=== PATIENT | female | born 1955 | race Caucasian/White ===

== ENCOUNTER 2017-03-24 18:00 | Emergency (ER) | payer BC ==
[2017-03-24] MEDS ORDERED: Ketorolac 60 MG/2 ML SDV IM ONE (18:19)
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
[2017-03-24 20:52] VITALS: BP 132/83
--- NOTE | 2017-03-25 18:30 | CR ---
EXAM DATE: 03/24/17 PATIENT'S AGE: 61 Patient: JANUARY SU[facility] Facility: [place], [place] Site . Site : [id number] Study: XRay Extremity Right [id number]/29/2017 6:47:56 PM Ordering Physician: Doctor Otoole Final Report: INDICATION: Forearm trauma. TECHNIQUE: Two views right forearm. COMPARISON: None Findings and impression: There is a mildly comminuted and impacted, intra-articular fracture of the distal radial metaphysis. There is associated soft tissue swelling. No other fracture identified. No dislocation. Dictated by Rajesh Arellano MD @ 03/24/2017 7:18:52 PM Dictated by: Rajesh Arellano MD @ 03/24/2017 19:19:02 (Electronic Signature) Report Signed by Proxy. SRAVAN
== END 2017-03-24 20:20 | disposition home or self-care (01) ==
LOC: MW.ED 18:00
DX: S52.121A Displaced fracture of head of right radius, initial encounter for closed fracture (principal); V87.8XXA Person injured in other specified noncollision transport accidents involving motor vehicle (traffic), initial encounter
CPT/HCPCS: 73090; 96372; 99283; A4566; J1885

== ENCOUNTER → 2017-03-27 | Outpatient (CLI) | payer BC ==
--- NOTE | 2017-03-27 15:19 | CR ---
EXAMINATION: Right wrist HISTORY: Pain COMPARISON: 03/24/2017 TECHNIQUE: 3 views FINDINGS/IMPRESSION: There is a comminuted intra-articular mildly impacted distal radius fracture id entified, grossly unchanged in position and alignment. There is mild negative ulnar variance. There is also widening of the scapholunate interval suggesting underlying ligamentous injury.
== END ==
LOC: MW.CHORTHO 08:19
PROVIDERS: ATTEND Physician Assistant
DX: M25.531 Pain in right wrist (principal); S52.571A Other intraarticular fracture of lower end of right radius, initial encounter for closed fracture
CPT/HCPCS: 73110-26-RT; 73110-RT

== ENCOUNTER → 2017-04-03 | Outpatient (CLI) | payer BC ==
--- NOTE | 2017-04-03 16:19 | CR ---
EXAMINATION: Right wrist HISTORY: Fracture COMPARISON: 03/27/2017 TECHNIQUE: 2 views FINDINGS/IMPRESSION: There is a stable mildly impacted comminuted distal radius fracture identified. There is negative ulnar variance. There is also mild widening of the scapholunate interval suggesti ng underlying ligamentous disruption.
== END ==
LOC: MW.CHORTHO 07:55
PROVIDERS: ATTEND Physician Assistant
DX: S52.501A Unspecified fracture of the lower end of right radius, initial encounter for closed fracture (principal)
CPT/HCPCS: 73100-26-RT; 73100-RT

== ENCOUNTER 2019-11-05 10:22 | Day surgery (SDC) | payer BC ==
[2019-11-05] MEDS ORDERED: Bupivacaine 0.5% 30 ML SDV ONE (11:14)
[2019-11-05] MEDS ORDERED: fentaNYL 100 MCG/2 ML SDV ONE ×3 (11:26→15:07)
[2019-11-05] MEDS ORDERED: Propofol 200 MG/20 ML SDV ONE (11:26)
[2019-11-05] MEDS ORDERED: Midazolam 1 MG/ML 2 ML SDV ONE (11:27)
[2019-11-05] MEDS ORDERED: Ketorolac 30 MG/ML SDV ONE (11:28)
[2019-11-05] MEDS ORDERED: Glycopyrrolate 0.2 MG/ML SDV ONE (11:28)
[2019-11-05] MEDS ORDERED: Lidocaine 2% 5 ML SDV ONE (11:28)
[2019-11-05] MEDS ORDERED: Ondansetron 4 MG/2 ML SDV ONE (11:28)
--- NOTE | 2019-11-05 11:28 | PCM.PREANE ---
Preanesthetic Assessment - Anesthesia/Transfusion/Family Hx Anesthesia History: Prior Anesthesia Without Reaction Family History of Anesthesia Reaction: No Transfusion History: No Prior Transfusion(s) - Review of Systems General: No Symptoms Pulmonary: No Symptoms Cardiovascular: No Symptoms Gastrointestinal: No Symptoms Neurological: No Symptoms Other: Reports: None - Physical Assessment NPO Status Date: 11/04/19 NPO Status Time: 23:00 Vital Signs: Last Vital Signs Temp 96.3 F 11/05/19 11:00 Pulse 62 11/05/19 11:00 Resp 16 11/05/19 11:00 BP 148/77 H 11/05/19 11:00 Pulse Ox 95 11/05/19 11:00 Height: 5 ft 3 in Weight: 92.079 kg ASA Class: 2 Mental Status: Alert & Oriented x3 Airway Class: Mallampati = 2 Dentition: Reports: Normal Dentition ROM/Head Extension: Full Lungs: Clear to Auscultation, Normal Respiratory Effort Cardiovascular: Regular Rate, Regular Rhythm - Allergies Allergies/Adverse Reactions: Allergies Allergy/AdvReac Type Severity Reaction Status Date / Time amlodipine [From [facility]] Allergy Headache Verified 10/31/19 11:22 - Blood Blood Available: No - Anesthesia Plan Pre-Op Medication Ordered: None - Acknowledgements Anesthesia Type Planned: General Anesthesia Pt an Appropriate Candidate for the Planned Anesthesia: Yes Alternatives and Risks of Anesthesia Discussed w Pt/Guardian: Yes Pt/Guardian Understands and Agrees with Anesthesia Plan: Yes Additional Comments: PMH: obesity with BMI=36, htn-well controlled, mild anxiety- appropriate, denies DIONICIO sx PLAN: ga/lma PreAnesthesia Questionnaire - Past Health History Medical/Surgical History: Denies Medical/Surgical History HEENT History: Reports: Other (See Below) Other HEENT History: wears glasses, has the start of cataracts Cardiovascular History: Reports: Hypertension Gastrointestinal History: Reports: GERD Genitourinary History: Reports: Urinary Incontinence 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: Musculoskeletal History: Reports: Arthritis, Back Pain, Chronic, Fracture, Gout Other Musculoskeletal History: hx of fx wrist x2 and ankle Neurological History: Reports: Other (See Below) Other Neuro History: hx of motion sickness Endocrine/Metabolic History: Reports: Obesity/BMI 30+ - Past Surgical History Head Surgeries/Procedures: Reports: None HEENT Surgical History: Reports: Tonsillectomy Female Surgical History: Reports: D&C, Tubal Ligation Dermatological Surgical History: Reports: Other (See Below) - SUBSTANCE USE Smoking Status *Q: Never Smoker Recreational Drug Use History: No - HOME MEDS Home Medications: Home Meds Chlorthalidone 25 mg PO DAILY 03/24/17 [History] Diltiazem [Cardizem CD] 240 mg PO QAM 03/24/17 [History] Lisinopril 40 mg PO QAM 03/24/17 [History] Allopurinol [Zyloprim] 300 mg PO DAILY 10/31/19 [History] Ascorbic Acid/Multivit-Min [Emergen-C 1,000 mg Packet] 1 pkt PO DAILY 10/31/19 [ History] B,C/Folic/Zinc/Copper Ox/Vit E [Stress B-Complex Tablet] 1 tab PO DAILY [History] Glucosam/Chond/MSM/[place]/Hyal [Glucosamine-Chondr Complex Tab] 2 tab PO DAILY [History] Leg Cramp Releif 1 tab PO BEDTIME 10/31/19 [History] Multivitamin [Daily Multiple Vitamin] 1 tab PO DAILY 10/31/19 [History] Omeprazole Magnesium [Prilosec Otc] 20 mg PO QAM 10/31/19 [History] - CURRENT (IN HOUSE) MEDS Current Meds: Current Medications Cefazolin Sodium/Dextrose 2 gm (/ Premix) 50 mls @ 100 mls/hr IV ONETIME ONE Stop: 11/05/19 12:30 Lactated Ringer's (Ringers, Lactated) 1,000 mls @ 125 mls/hr IV [facility]ED [facility] Last Admin: 11/05/19 11:13 Dose: 125 mls/hr Discontinued Medications Bupivacaine HCl (Marcaine 0.5%) Confirm Administered Dose 30 ml .ROUTE .STK-MED ONE Stop: 11/05/19 11:15
[2019-11-05] MEDS ORDERED: Sodium Chloride 0.9% 20 ML ONE (11:40)
[2019-11-05] MEDS ORDERED: ceFAZolin 1 GM Vial ONE (11:40)
[2019-11-05] MEDS ORDERED: ceFAZolin 2 GM in Premix Bag 1 BAG IV ONE (12:01)
[2019-11-05] MEDS ORDERED: Lactated Ringers 1,000 ML IV SCH (12:01)
[2019-11-05] MEDS ORDERED: Phenylephrine/Normal Saline 100 MCG/ML 10 ML Syringe ONE (12:17)
[2019-11-05] MEDS ORDERED: fentaNYL 100 MCG/2 ML SDV IVPUSH PRN (13:41)
[2019-11-05] MEDS ORDERED: Acetaminophen 1,000 MG in Premix Bag 1 BAG IV PRN (13:42)
--- NOTE | 2019-11-05 14:26 | PN ---
PREOPERATIVE PROGRESS NOTE. DATE OF SURGERY: November 05, 2019. PLANNED PROCEDURE: Lapidus fusion with bunionectomy of right foot. ALLERGIES: To Norvasc. CURRENT MEDICATIONS: 1. B complex daily. 2. Emergen-C daily. 3. Leg cramp relief [id number] apparently one tablet daily. 4. Allopurinol 300 mg one tablet daily. 5. Chlorthalidone 25 mg oral tablet per instructions. 6. Diltiazem hydrochloride ER 240 mg per 24 hour oral capsule extended release per instructions. 7. Glucosamine and chondroitin with MSM 2 tablets p.o. daily. 8. Lisinopril 40 mg oral tablet per instructions. 9. Multivitamin one cap p.o. daily. ACTIVE PROBLEMS: 1. Arthritis of lumbar spine. 2. Calcification of abdominal aorta. 3. Depression. 4. Female stress incontinence. 5. History of menorrhagia. 6. Hypertension, benign. 7. Menopause syndrome. 8. Obesity. 9. Right knee pain. She had an EKG and a chest x-ray, were both normal. LABORATORY DATA: Sodium 142, potassium 4.0, chloride 103, CO2 of 30.0, random glucose 98, BUN 17, creatinine 0.9, calcium 9.6. White blood cell 5.83, red blood cell 5.0, hemoglobin 15.0, hematocrit 45.6, platelets 301. As I said, the EKG did have sinus rhythm and the chest x-ray impression was no radiographic evidence of acute cardiopulmonary process. The patient presents for hallux valgus correction with bunion deformity today. All risks and benefits have been discussed with the patient and her on prior occasion and today. No guarantees expressed or implied. The patient wishes to proceed with surgery as stated above. Written consent has been signed with a witness present and placed in the patient's chart. ROMAN HILTON /[id number]
--- NOTE | 2019-11-05 17:41 | PCM.POSTAN ---
POST ANESTHESIA ASSESSMENT - MENTAL STATUS Mental Status: Alert - VITAL SIGNS Vital Signs: Last Vital Signs Temp 37.9 C 11/05/19 16:37 Pulse 92 11/05/19 17:37 Resp 12 11/05/19 17:37 BP 130/69 11/05/19 17:37 Pulse Ox 94 L 11/05/19 17:37 - RESPIRATORY Respiratory Status: Respiratory Rate WNL - CARDIOVASCULAR CV Status: Pulse Rate WNL - GASTROINTESTINAL GI Status: No Symptoms - POST OP HYDRATION Hydration Status: Adequate & Stable
--- NOTE | 2019-11-05 19:28 | PCM.OPNOTE ---
- General Post-Op/Procedure Note Date of Surgery/Procedure: 11/05/19 Operative Procedure(s): s/p Lapidus fusion with bunionectomy right foot Findings: consistent with diagnoses Pre Op Diagnosis: hallux valgus and bunion deformity right foot Post-Op Diagnosis: hallux valgus and bunion deformity right foot Anesthesia Technique: General LMA Primary Surgeon: Leandro Quinn Pathology: none EBL in mLs: 40 Complications: none Condition: Good Free Text/Narrative:: Intake & Output 11/05/19 11/05/19 11/05/19 06:59 14:59 22:59 Intake Total 1100 Balance 1100 materials: Diamond Fixos 4.0 x 40 mm cannulated partially threaded headless fixation screw Diamond L-plate 37 mm length, 5 holes Diamond Variax 2.7 mm x 18 mm Locking screws, T8 x2 Diamond Variax 2.7 mm x 20 mm Locking screw, T8 Diamond Variax 2.7 mm x 18 mm Non-locking screw, T8 3-0 vicryl 4-0 vicryl 4-0 Stratafix injectables: 10 ml 0.5% marcaine plain
[2019-11-05 19:30] VITALS: BP 120/69; PULSE 69
--- NOTE | 2019-11-05 19:51 | PCM48HPAN ---
Post Anesthesia Note - EVALUATION WITHIN 48HRS OF ANESTHETIC Vital Signs in Normal Range: Yes Patient Participated in Evaluation: Yes Respiratory Function Stable: Yes Airway Patent: Yes Cardiovascular Function Stable: Yes Hydration Status Stable: Yes Pain Control Satisfactory: Yes Nausea and Vomiting Control Satisfactory: Yes Mental Status Recovered: Yes Vital Signs: Last Vital Signs Temp 36.8 C 11/05/19 18:00 Pulse 69 11/05/19 19:00 Resp 17 11/05/19 19:00 BP 120/69 11/05/19 19:00 Pulse Ox 94 L 11/05/19 19:00
--- NOTE | 2019-11-05 21:32 | OR ---
SURGEON: Leandro Quinn DPM DATE OF PROCEDURE: 11/05/2019 PRIMARY SURGEON: Leandro Quinn DPM. PREOPERATIVE DIAGNOSES: Hallux abductovalgus with bunion deformity, right foot. POSTOPERATIVE DIAGNOSES: Hallux abductovalgus with bunion deformity, right foot. PROCEDURE: Lapidus fusion with bunionectomy, right foot. ANESTHESIA: General. HEMOSTASIS: Above-ankle pneumatic tourniquet inflated to a pressure of 250 mmHg after an Esmarch bandage exsanguination in 2 parts. Tourniquet was inflated for 2 hours, deflated for 1 hour and then inflated for the duration of the procedure, which was less than 1 hour at that point. ESTIMATED BLOOD LOSS: 40 mL. PATHOLOGY: None. CONDITION: The patient tolerated the procedure and the anesthesia well with no complications noted and a prompt hyperemic response was noted to all digits of the right foot following deflation of the tourniquet both times. MATERIALS: [place] Fixos 4.0 x 40 mm cannulated partially threaded headless fixation screw. Diamond L plate, 37 mm length, 5 hole. [place] VariAx 2.7 mm x 18 mm locking screws, T8 x2. [place] VariAx 2.7 mm x 20 mm locking screw, T8. [place] VariAx 2.7 mm x 18 mm nonlocking screw, T8. 3-0 Vicryl, 4-0 Vicryl, 4-0 Stratafix. INJECTABLES: 10 mL of 0.5% Marcaine plain was injected at the end of the procedure to the patient's right foot. JUSTIFICATION FOR THE PROCEDURE: The patient has suffered to increasing degrees over the years with bunion deformity and hallux valgus on the right foot. The patient has tried conservative measures; however, the size of the bunion has made it impossible for her to comfortably ambulate with normal shoe gear despite modification. The conservative measures having been exhausted, the patient has requested surgical treatment for this deformity. Surgical options were discussed in detail previous to today's surgery with the patient and her who was also present at each visit in my office and both the head and base procedures were discussed. Given the patient's age, weight and degree of the deformity, I have recommended a Lapidus fusion with bunionectomy of the right foot. Risks and benefits have been discussed including risks of prolonged healing time, malunion or nonunion of the planned fusion, postoperative infection. All the patient's questions were answered. No guarantees have been expressed or implied and the patient has consented in writing for surgery today with the above procedure. PROCEDURE IN DETAIL: Lapidus fusion with bunionectomy, right foot: The patient was brought to the operating room, placed on the operating table in a supine position, at which time, anesthesia was induced. An above-ankle pneumatic tourniquet was applied and then an aseptic scrub and drape was performed about the patient's right lower extremity. Preoperative x-rays were taken documenting with AP and lateral views the preoperative state of the right foot and fluoroscopy was also utilized to plan and holly the landmarks including the first metatarsophalangeal joint, the first metatarsocuneiform joint, the naviculocuneiform joint and the planned incision line as well. This was planned with a marking pen over the dorsal medial aspect of the mid and distal foot. Esmarch bandage was utilized to exsanguinate the right lower extremity and the tourniquet was inflated to a pressure of 250 mmHg. Incision began with planned incision line proximal to the joint of the medial cuneiform with the 1st metatarsal and extending to the first metatarsophalangeal joint just distally to that joint. Blunt dissection was utilized wherever possible. Patient had numerous bleeders of various sizes that were bovied as necessary. The medial dorsal cutaneous nerve was identified and retracted medially out of the path of dissection. The extensor hallucis longus tendon was also retracted laterally out of the path of dissection. The tibialis anterior was retracted inferiorly to minimize impact to this tendon from the procedure being conducted. Once the bone of the first metatarsocuneiform joint had been exposed, a Weinraub retractor was used to distract the joint. Two K- wires were used to enable use of the Weinraub retractor, one in the medial cuneiform bone, one in the 1st metatarsal. Initially, this was done medially and then repositioned and placed dorsally. In order to facilitate preparation of the joint, a TPS saw was used to remove the base of the first metatarsal and the lateral half of the articulating cartilage of the medial cuneiform and the rest of the preparation was done with a combination of bone curetting and also fenestrated with a small K-wire to increase bleeding on both sides of the joint. Normal sterile saline was used for flushing repeatedly throughout the procedure and reinspection was done after each flush. All cartilage was removed from both sides of the medial cuneiform 1st metatarsal joint and there was excellent bone bleeding noted after the fenestration with the K-wire drilling. The Weinraub retractor was then removed and the bone was held with intraoperative fluoroscopy verification in the desired position for fixation. The K-wire was then drilled from the metatarsal to the medial cuneiform fixating the first metatarsal in a reduced intermetatarsal angle position flushed with the medial cuneiform articulation. Another K-wire was used to prepare the path for the compression screw and the K-wire was drilled from the first metatarsal proximally to the medial cuneiform and from a dorsal lateral position running proximally to a proximal plantar position toward the medial pole of the medial cuneiform. Measurement was done and a self-drilling self-tapping headless compression screw Fixos model measuring 4.0 mm diameter by 40 mm length was then drilled across the joint using the path of the K-wire. Compression was noted to be excellent and I should note that just prior to removal of the Weinraub retractor, DBM bone substituted with mixture with saline and crushed bone removed from the lateral aspect of the medial cuneiform was used to create a bone slurry and packed into the site of the fusion in order to minimize the shortening of the first metatarsal at that joint. Intraoperative fluoroscopy confirmed the positioning of the compression screw. At this time, a 5-hole L-plate was selected and the plate was positioned on the medial aspect crossing the medial cuneiform and 1st metatarsal. It was fixated with BB-Mono, drilling was done and measuring for each of the screws used. This was a 5-hole plate. The middle hole crossed the joint side and was therefore not used. The proximal screw holes of the L plate on the medial cuneiform were fixated with two 18 mm x 2.7 mm diameter locking screws. The most distal hole over the 1st metatarsal of this plate was fixated using a 2.7 mm x 18 mm locking screw, and the hole just proximal to it was fixated with a nonlocking screw measuring 2.7 mm x 20 mm. During the procedure, the tourniquet reached the 2-hour limit and was deflated for 1 hour and the fixation was completed after the tourniquet was deflated. Dissection proceeded over the bunion area with an L capsulotomy being made of the first metatarsal head revealing the bunion deformity, which was debrided of some calcifications noted and once the tourniquet had been reinflated following an identical Esmarch bandage exsanguination, the bunionectomy proceeded and the medial eminence of the first metatarsal head of the right foot was removed using a TPS saw and rasped smooth with a power rasp and this was judged to be exactly as desired. Area was flushed and layered closure commenced with the capsule and deep tissue closed with 3-0 Vicryl, the subcutaneous tissue with 4-0 Vicryl, and during this closure of the deep tissue and subcutaneous tissue, the capsule was reapproximated and an 11 blade was used to remove a small portion of the medial capsule. This was a medial capsulorraphy technique in order to tighten the capsule now that the bunion had been removed and the closure of the skin was made with 4-0 Stratafix suture in a running subcuticular stitch. 10 mL of 0.5% Marcaine plain was infiltrated about the surgical site. The tourniquet was deflated for the 2nd time and dressings were applied beginning with Betadine- soaked Xeroform gauze over the surgical site, fluff gauze multiple layers over that and a Kerlix roll. A stockinette was then applied to the right lower extremity followed by multiple layers of cast padding, and an Ortho-Glass posterior splint was fashioned and placed and secured with 3-inch and 4-inch Jay bandages. The patient tolerated the anesthesia and the procedure well and was transported from the operating room to the recovery room with vital signs stable and vascular status intact, and after a brief stay in [facility] due to the ending time of surgery, the patient will be discharged home with written discharge instructions including use of [place] for pain relief and strict nonweightbearing to the right lower extremity. The patient already has a wheelchair and a knee scooter and her has already built a ramp to allow her to more easily enter and exit their home. The patient will be contacting no later than tomorrow and we will evaluate whether the patient should be brought into the office for a dressing change tomorrow or whether it can wait until next week. The patient has my phone number at any time should she have any questions. ROMAN HITLON /[id number]
== END 2019-11-05 19:00 | disposition home or self-care (01) ==
LOC: MW.SDS 10:22 → MW.MS 16:40 → MW.SDS 19:00
PROVIDERS: ATTEND Podiatrist Foot & Ankle Surgery
DX: M20.11 Hallux valgus (acquired), right foot (principal); I10 Essential (primary) hypertension; F32.9 Major depressive disorder, single episode, unspecified; K21.9 Gastro-esophageal reflux disease without esophagitis; M47.816 Spondylosis without myelopathy or radiculopathy, lumbar region; E66.9 Obesity, unspecified; Z68.36 Body mass index [BMI] 36.0-36.9, adult; Z79.899 Other long term (current) drug therapy
CPT/HCPCS: 28297; J0690; J1885; J2001; J2250; J2370; J2405; J2704; J3010; J3490; J7120